=== PATIENT | female | born 1990 | race Caucasian/White ===

== ENCOUNTER 2021-04-10 14:37 | Emergency (ER) | payer OTHER ==
[2021-04-10 15:46] LABS: HEMOGLOBIN 11.9 gm/dl (12.3-15.3); RED BLOOD COUNT 3.75 M/UL (4.00-5.10); WHITE BLOOD COUNT 5.8 K/UL (4.5-11.0)
[2021-04-10 16:01] LABS: BUN/CREATININE RATIO 21 (0-10)
== END 2021-04-10 17:28 | disposition home or self-care (01) ==
LOC: ER1 14:37
PROVIDERS: Physician Assistant
DX: M79.601 Pain in right arm (principal); R51.9 Headache, unspecified; Z86.16 Personal history of COVID-19; Z79.01 Long term (current) use of anticoagulants; F17.200 Nicotine dependence, unspecified, uncomplicated
CPT/HCPCS: 70450; 80053; 84484; 85025; 93005; 99284

== ENCOUNTER → 2021-10-20 | Outpatient (CLI) | payer OTHER | LOC: RAD 10:40 | DX: M54.2 Cervicalgia (principal) | CPT/HCPCS: 72050 ==

== ENCOUNTER 2022-07-14 12:24 | Emergency (ER) | payer OTHER ==
[2022-07-14 13:21] LABS: HEMOGLOBIN 12.4 gm/dl (12.3-15.3); RED BLOOD COUNT 3.86 M/UL (4.00-5.10); WHITE BLOOD COUNT 5.8 K/UL (4.5-11.0)
[2022-07-14 13:45] LABS: BUN/CREATININE RATIO 14 (0-10)
[2022-07-14] MEDS ORDERED: IBUPROFEN800 MG PO (17:58)
== END 2022-07-14 18:35 | disposition home or self-care (01) ==
LOC: ER1 12:24
DX: R07.89 Other chest pain (principal)
CPT/HCPCS: 70450; 70490; 71045; 80053; 82550; 82553; 83690; 84484; 85025; 85379; 85652; 86140; 93005; 99285